=== PATIENT | female | born 1965 | race Asian ===

== ENCOUNTER 2023-06-19 22:46 | Emergency (ER) | payer OTHER ==
[2023-06-19 23:04] VITALS: BP 141/75; PULSE 98; RESP 16; TEMP 99.1; BMI 24.9
== END 2023-06-19 23:21 | disposition home or self-care (01) ==
LOC: FER 22:46
DX: R50.9 Fever, unspecified (principal); B34.9 Viral infection, unspecified; U07.1 COVID-19
CPT/HCPCS: 0241U-QW; 99283-25